=== PATIENT | male | born 1995 | race African-American/Black ===

== ENCOUNTER 2016-06-27 07:10 | Emergency (ER) ==
[2016-06-27 07:20] VITALS: BP 127/64
--- NOTE | 2016-06-27 08:28 | PROVIDER DOCUMENTATION ---
HPI-General Adult - General Chief Complaint: General Adult Stated Complaint: ABD PAIN Time Seen by Provider: 06/27/16 07:31 Source: patient, family Allergies/Adverse Reactions: Patient Allergies Allergy/AdvReac Type Severity Reaction Status Date / Time gluten Allergy Intermediate NAUSEA/VOMI Verified 02/29/16 09:24 TING Home Medications: Home Medication List Medication Instructions Recorded Confirmed Last Taken Type Hydroxyzine Pamoate [Vistaril] 25 mg PO TID #20 capsule 02/29/16 Unknown Rx Mupirocin Ointment [Bactroban 1 applicatn TOP TID #1 tube 02/29/16 Unknown Rx Ointment] Sulfamethoxazole/Trimethoprim 1 each PO BID #20 tablet 02/29/16 Unknown Rx [Bactrim Ds Tablet] Mebendazole 100 mg PO DAILY #2 tab.chew 06/27/16 Unknown Rx - History of Present Illness -Gen Adult Nature of Presenting Problems: Reports whole family infested with pinworms and, talking about all sorts of non- specific symptoms, i.e, ear/skin tingling skin crawling, anxiety, etc. Denies F/ C/N/V. Looks comfortable. OTC Pinworm meds did not help. Other two family member checked in for the same. All looks very anxious. Pt was seen at ER previously for similar issues. Location of Pain/Injury: reports: none Pain Radiation: reports: no radiation Quality of Pain: reports: none Severity: reports: mild Onset/Duration: reports: unsure, other (Chronic) Timing: reports: still present Context/Activities at Onset: reports: none Modifying Factors: improves with: nothing Associated Symptoms: reports: anxiety Similar Symptoms Previously?: Yes Recently seen or treated by another doctor?: Yes Review of Systems - Adult - REVIEW OF SYSTEMS - ADULT Constitutional: reports: no symptoms reported. denies: chills, fever Eyes: reports: no symptoms reported Ears, Nose, Mouth & Throat: reports: no symptoms reported Cardiovascular: reports: no symptoms reported Respiratory: reports: no symptoms reported Gastrointestinal: reports: see HPI. denies: nausea, vomiting Genitourinary: reports: no symptoms reported Musculoskeletal: reports: no symptoms reported Integumentary: reports: see HPI, itching Neurological: reports: no symptoms reported All Other Systems: Reviewed and Negative Past History - Adult - PAST MEDICAL HISTORY-ADULT Review of Records: reports: Old Records Reviewed, Nursing Assessment Review, Medications Reviewed Major Childhood Illnesses: reports: denies history Cardiovascular: reports: denies history Respiratory: reports: denies history Gastrointestinal: reports: denies history Obstetrical/Gynecological: reports: denies history Genitourinary: reports: denies history Musculoskeletal: reports: denies history Neurological: reports: denies history Endocrine/Immune: reports: denies history Other Conditions: reports: denies history - IMMUNIZATION STATUS Childhood Immunizations: See Nurse Assessment Flu Vaccine: See Nurse Assessment - FAMILY HISTORY Family History: reviewed, not pertinent Physical Exam-General - PHYSICAL EXAM-ADULT Initial Vital Signs Reviewed: Yes - CONSTITUTIONAL General Appearance: appears well, alert, no apparent distress - EYES Eyes: PERRL/EOMI, pink conjunctivae - HEAD, EARS, NOSE, MOUTH & THROAT HENMT: normocephalic/atraumatic, moist mucous membranes, normal ENT inspection - NECK Neck: non-tender, full range of motion, supple - RESPIRATORY Respiratory: chest non-tender, lungs clear, normal breath sounds, no pleuratic chest pain, no respiratory distress, no accessory muscle use - CARDIOVASCULAR Cardiovascular: normal peripheral pulses, regular rate, rhythm, no edema, no gallop, no JVD - GASTROINTESTINAL (ABDOMEN) Abdominal Exam: normal bowel sounds, non tender, soft, no organomegaly - MUSCULOSKELETAL Back Exam: normal inspection, no CVA tenderness Extremity: normal range of motion, normal gait - SKIN Integumentary: normal color, normal turgor, warm/dry - PSYCHIATRIC Psych/Mental Status: anxious Departure - Departure Time of Disposition Order: 08:26 DIAGNOSIS: Pinworm infection Disposition: HOME 01 Certified Medical Emergency: Emergent Condition: Stable Prescriptions: Mebendazole 100 mg PO DAILY #2 tab.chew Referrals: AFRICA MARTINI [Primary Care Provider] - Hunter Rosas MD [STAFF PHYSICIAN] - Instructions: Hookworm Infection
== END 2016-06-27 08:20 | disposition home or self-care (01) ==
LOC: ED 07:10
DX: B80 Enterobiasis (principal); R10.9 Unspecified abdominal pain; R20.2 Paresthesia of skin; L29.9 Pruritus, unspecified